=== PATIENT | female | born 1990 | race African-American/Black ===

== ENCOUNTER 2020-01-21 03:24 | Emergency (ER) | payer BC, MEDICAID, SELFPAY ==
--- NOTE | ~2020-01-21 | XR_ITS ---
XR foot LT min 3V DATE: 01/21/2020 04:07 INDICATION: Twisted ankle. Dorsal and lateral ankle and foot pain TECHNIQUE: 4 views COMPARISON: None FINDINGS: There is mild plantar and posterior calcaneal enthesopathy. No fracture or dislocation, periosteal reaction or bone destruction. IMPRESSION: Calcaneal enthesopathy No fracture or dislocation Reviewed, dictated and finalized at location A.
--- NOTE | ~2020-01-21 | XR_ITS ---
XR ankle LT min 3V DATE: 01/21/2020 04:07 INDICATION: Twisted ankle. Pain of left ankle and left foot laterally and dorsally. TECHNIQUE: 4 views COMPARISON: None FINDINGS: Mild plantar and posterior calcaneal enthesopathy. No fracture or dislocation of the ankle or disruption of the ankle mortise is detected. IMPRESSION: No fracture or dislocation of the ankle Reviewed, dictated and finalized at location A.
[2020-01-21 03:33] VITALS: BP 124/75; PULSE 107; RESP 15; TEMP 36.6; O2SAT 97
--- NOTE | 2020-01-21 04:05 | ED.LOWEXIN ---
HPI - Extremity Injury (Lower) General Chief Complaint: Extremity Injury, Lower Stated Complaint: left foot pain Time Seen by Provider: 01/21/20 03:45 Source: patient Mode of arrival: ambulatory Limitations: no limitations History of Present Illness HPI Narrative: Patient is a 29-year-old female who presents to the emergency department with complaint of left ankle/foot pain after sustaining a twisting injury when she missed a step. Patient locates the pain across the dorsal aspect of the proximal foot/lower ankle. She denies any other injuries or complaints. MD complaint: ankle injury and foot injury Onset (ago): hour(s) Injury: Left: ankle and foot Type of Injury: other (Twisted) Place: home Context: other (Missed a step) Treatments prior to arrival: cold therapy and other (Tramadol) Related Data Home Medications Medication Instructions Recorded Confirmed No Home Medications 01/21/20 01/21/20 Allergies Allergy/AdvReac Type Severity Reaction Status Date / Time No Known Allergies Allergy Unverified 01/21/20 03:37 Review of Systems Review of Systems: All systems reviewed & are unremarkable except as noted in HPI and below PMFSH Past Medical History Medical History (Updated 01/21/20 @ 04:58 by Yadira Jean Baptiste MD) No significant past medical history Surgical History Surgical History (Updated 01/21/20 @ 04:52 by Yadira Jean Baptiste MD) No history of previous surgery Family History Family History (Updated 05/11/17 @ 10:40 by DOCTOR UNKNOWN) Grandparent Family history of malignant neoplasm of breast Social History Social History Smoking status: Former smoker Smoking end date: 11/07/16 Alcohol intake: never Exam Const: General: cooperative, no acute distress and alert Nutritional Appearance: well nourished Orientation/consciousness: patient oriented x3 Limitations: no limitations Resp: Effort & Inspection: normal respiratory effort Auscultation: clear to auscultation bilaterally Cardio: Rate: regular rate Rhythm: regular rhythm Skin: General skin exam: normal color Neuro: General: patient oriented x3 Cognition (Neuro): normal cognition Speech: normal speech Extrem: General: full ROM and no clubbing, cyanosis or edema Left lower extremity: ankle Details: tenderness (Distal ankle); no swelling and no ecchymosis and foot Details: toes with normal ROM, no edema, vascular exam Details: dorsalis pedis pulse present, posterior tibial pulse present and normal capillary refill and motor-sensory exam light-touch normal; no tenderness and no ecchymosis Psych: Mental Status: mental status grossly normal Affect: normal affect Attitude: cooperative Course Course Emergency Course: No acute abnormalities noted on imaging. Discussed use of anti-inflammatories and acetaminophen for symptom management continue ice and elevation. Vital Signs Vital signs: Vital Signs Temperature 97.9 F 01/21/20 03:33 Pulse Rate 107 H 01/21/20 03:33 Respiratory Rate 15 01/21/20 03:33 Blood Pressure 124/75 01/21/20 03:33 Pulse Oximetry 97 01/21/20 03:33 Temperature 97.9 F 01/21/20 03:33 Pulse Rate 107 H 01/21/20 03:33 Respiratory Rate 15 01/21/20 03:33 Blood Pressure 124/75 01/21/20 03:33 Pulse Oximetry 97 01/21/20 03:33 MDM - Extremity Injury (Lower) Imaging Data Attestation: I personally reviewed and interpreted this imaging study as follows: My impression: X-ray left foot/left ankle: No acute abnormality Critical Care Time Critical Care Time Critical Care Time: No Discharge Plan Discharge Clinical Impression: Left ankle sprain Qualifiers: Encounter type: initial encounter Involved ligament of ankle: unspecified ligament Qualified Code(s): S93.402A - Sprain of unspecified ligament of left ankle, initial encounter Patient Disposition: Home, Self-Care Condition: Stable Instructions: Ankle Sprain (ED) Additional Instructions: Wear Sheldon wrap a
[2020-01-21] MEDS: IBUPROFEN 600 MG TABLET PO (04:22)
[2020-01-21 05:00] VITALS: BP 122/78; PULSE 98; RESP 12; O2SAT 98
== END 2020-01-21 05:00 | disposition home or self-care (01) ==
PROVIDERS: Emergency Provider Emergency Medicine
DX: S93.402A Sprain of unspecified ligament of left ankle, initial encounter (principal); Z87.891 Personal history of nicotine dependence; X50.9XXA Other and unspecified overexertion or strenuous movements or postures, initial encounter
CPT/HCPCS: 73610; 73630; 99283; A9270

== ENCOUNTER 2020-04-14 22:35 | Emergency (ER) | payer BC, MEDICAID, SELFPAY ==
--- NOTE | ~2020-04-14 | XR_ITS ---
EXAMINATION: XR elbow LT min 3V EXAM DATE: 04/14/2020 23:07 INDICATION: Initial encounter following injury, with pain of the left elbow, posteriorly. TECHNIQUE: Left elbow frontal, lateral with flexion, and oblique projections obtained and reviewed. There is no prior study for comparison. FINDINGS: Left elbow anterior humeral line intact. There is acute closed posttraumatic fracture of the left radial head with about 2 mm of impaction. This finding has been indicated, marked on the ex amination for review, clinical correlation. There is an elbow joint hemarthrosis. No other acute find ings. IMPRESSION: Acute left radial head fracture with a few millimeters impaction. Reviewed, dictated and finalized at location G.
[2020-04-14 22:42] VITALS: BP 130/75; PULSE 93; RESP 16; TEMP 37; O2SAT 98
--- NOTE | 2020-04-14 22:51 | ED.UPPEXIN ---
HPI - Extremity Injury (Upper) General Chief Complaint: Extremity Injury, Upper Stated Complaint: fell; arm injury Time Seen by Provider: 04/14/20 22:38 History of Present Illness HPI narrative: Patient is a 30-year-old female who presents ER with left elbow pain. She is sitting on the porch when she fell backwards and struck her left elbow. Has pain with extension. No numbness or tingling. No deformity. Has not tried any pain medication. Did not strike her head or lose consciousness. Related Data Allergies Allergy/AdvReac Type Severity Reaction Status Date / Time No Known Allergies Allergy Unverified 01/21/20 03:37 Review of Systems Gastrointestinal: Gastrointestinal: Denies nausea and Denies vomiting Musculoskeletal: Musculoskeletal: Reports arthralgias and Denies joint swelling Neurologic: Denies syncope, Denies focal weakness, Denies numbness and Denies weakness PMFSH Past Medical History Medical History (Updated 04/14/20 @ 23:59 by Jeffrey Haley MD) No significant past medical history Surgical History Surgical History (Updated 01/21/20 @ 04:52 by Yadira Jean Baptiste MD) No history of previous surgery Family History Family History (Updated 05/11/17 @ 10:40 by DOCTOR UNKNOWN) Grandparent Family history of malignant neoplasm of breast Social History Social History Smoking status: Former smoker Smoking end date: 11/07/16 Alcohol intake: never Gender identity (if verbalized by the patient): Female Exam Narrative: Exam Narrative: GENERAL: Well-appearing, well-nourished, and in no acute distress. HEAD: Normocephalic, atraumatic. HEART: Regular rate and rhythm. Normal peripheral pulses. EXTREMITIES: TTP posterior left elbow and radial head, normal sensation/pulses. Increased pain with extension/pronation/supinantion. SKIN: Warm, dry, no rash. NEURO: No focal deficits. Alert and oriented x3. PSYCH: Normal mood and affect. Course Course Emergency Course: Informed of results. Nurses placed sign. Refer to Orth. Vital Signs Vital signs: Vital Signs Temperature 98.6 F 04/14/20 22:42 Pulse Rate 93 04/14/20 22:42 Respiratory Rate 16 04/14/20 22:42 Blood Pressure 130/75 04/14/20 22:42 Pulse Oximetry 98 06/08/20 22:42 Temperature 98.6 F 04/14/20 22:42 Pulse Rate 93 04/14/20 22:42 Respiratory Rate 16 04/14/20 22:42 Blood Pressure 130/75 04/14/20 22:42 Pulse Oximetry 98 04/14/20 22:42 Discharge Plan Discharge Clinical Impression: Fracture of radial head, left, closed Patient Disposition: Home, Self-Care Condition: Stable Instructions: Arm Fracture in Adults (ED), How to Use a Sling (ED) Additional Instructions: Follow-up with orthopedic surgery for further evaluation and treatment. Return the ER if you suffer new injury, you have chest pain or shortness of breath, you have additional concerns. Prescriptions: New hydrocodone-acetaminophen 5-325 mg tablet 1 tablet PO Q6H PRN (Reason: pain) Qty: 20 RF: 0 Follow-up/Referrals: PHYSICIAN NOT ON STAFF,NONSTAFF [Primary Care Provider] - None Jp Heath MD [Physician] - 1 Week Stand Alone Forms: Work/School Release IP
[2020-04-15 00:13] VITALS: BP 128/74; PULSE 91; RESP 16; O2SAT 100
== END 2020-04-15 00:14 | disposition home or self-care (01) ==
PROVIDERS: Emergency Provider Emergency Medicine; PCP Nurse Practitioner Family
DX: S52.122A Displaced fracture of head of left radius, initial encounter for closed fracture (principal); Z87.891 Personal history of nicotine dependence; W17.89XA Other fall from one level to another, initial encounter
CPT/HCPCS: 73080; 99284; A4565; A9270

== ENCOUNTER 2020-11-20 14:42 | Outpatient (CLI) | payer BC, SELFPAY ==
[2020-11-20 15:29] LABS: Beta HCG Quantitative < 2.39 mIU/ML
== END 2020-11-20 14:43 | disposition home or self-care (01) ==
PROVIDERS: Visit Provider Student in an Organized Health Care Education/Training Program
DX: N64.52 Nipple discharge (principal)
CPT/HCPCS: 36415; 84146; 84443; 84702

== ENCOUNTER 2020-12-03 10:58 | Outpatient (CLI) | payer BC, SELFPAY ==
--- NOTE | ~2020-12-03 | US_ITS ---
US breast RT complete INDICATION: Milky nipple discharge TECHNIQUE: Dedicated right breast ultrasound COMPARISON: No prior studies for comparison. FINDINGS: The right breast is composed of normal heterogeneous echotexture without focal solid or cys tic mass. IMPRESSION: 1: Normal right breast ultrasound. BI-RADS CATEGORY 1 - NEGATIVE Reviewed, dictated and finalized at location A. 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
== END 2020-12-03 10:59 | disposition home or self-care (01) ==
PROVIDERS: Visit Provider Student in an Organized Health Care Education/Training Program
DX: N64.52 Nipple discharge (principal)
CPT/HCPCS: 76641

== ENCOUNTER 2021-03-23 03:47 | Emergency (ER) | payer BC, MEDICAID, SELFPAY ==
[2021-03-23] VITALS (35 sets, daily range): BP systolic 94–133; BP diastolic 62–107; PULSE 60–97; RESP 12–20; TEMP 36.9; O2SAT 96–100
--- NOTE | ~2021-03-23 | US_ITS ---
EXAMINATION: US OB <=14 wk fetus w TV DATE: 03/23/2021 06:56 INDICATION: Pelvic pain. TECHNIQUE: Real-time transabdominal and transvaginal pelvic ultrasound was performed. COMPARISON: None. FINDINGS: TRANSABDOMINAL ULTRASOUND: The uterus measures 10.2 x 5.5 x 4.4 cm. TRANSVAGINAL ULTRASOUND: There is no visible intrauterine gestational sac. The endometrial complex me asures 14 mm in thickness. The right ovary measures 3.6 x 1.9 x 1.8 cm. The left ovary measures 2.9 x 2.1 x 2.0 cm. There is normal vascular flow in the ovaries. There is trace free fluid in the pelvis. IMPRESSION: 1. No visible intrauterine gestational sac, which may be normal in early . Spontaneous abor tion and ectopic are not excluded. Serial beta-hCGs are recommended. Reviewed, dictated and finalized at location A. IMPRESSION: 1. No visible intrauterine gestational sac, which may be normal in early pregn kelby. Spontaneous and ectopic are not excluded. Serial beta- hCGs are recommended.
--- NOTE | ~2021-03-23 | CT_ITS ---
EXAMINATION: CT abdomen pelvis w con DATE: 03/23/2021 10:13 INDICATION: Lower abdominal pain. Nausea, vomiting. Miscarriage 3 weeks ago. TECHNIQUE: Computed tomography (CT) of the abdomen and pelvis was performed with 100 cc Omnipaque 350 intravenous contrast. Automated exposure control and iterative reconstruction technique were employe d. Exam dose: 810.55 mGy-cm total exam DLP. COMPARISON: None. FINDINGS: The lung bases are clear. Normal heart size. No pericardial or pleural effusion. The liver, gallbladder, bile ducts, spleen, pancreas, pancreatic duct, and adrenal glands and kidneys are unremarkable. No urinary tract calculus or hydroureteronephrosis. Normal caliber of the abdominal aorta. No intraperitoneal or retroperitoneal or pelvic mass lesion or adenopathy or ascites. Normal caliber of the appendix. No bowel obstruction, bowel wall thickening, pneumatosis or intraperi toneal free air. Uterus measures approximately 11 cm height, uterine fundus up to 5 cm AP dimension. Endometrial cavit y at the uterine fundus measures up to 13 mm AP dimension, which may represent blood within the endom etrial cavity or retained products of conception given history of miscarriage 3 weeks ago. Small amount of free fluid in the cul-de-sac, which may be physiologic. Adnexa and urinary bladder ar e unremarkable. Small fat-containing umbilical hernia. No suspicious osteolytic or osteoblastic lesions.. IMPRESSION: Enlarged uterus with prominent endometrial content 3 weeks post reported miscarriage; th e prominent endometrial content may be due to blood or retained products of conception. Consider pelv ic ultrasound correlation. Reviewed, dictated and finalized at Location A. Reviewed, dictated and finalized at location B. IMPRESSION: Enlarged uterus with prominent endometrial content 3 weeks post re ported miscarriage; the prominent endometrial content may be due to blood or re tained products of conception. Consider pelvic ultrasound correlation.
--- NOTE | 2021-03-23 03:55 | PC.NURSE ---
Pt presents to ED with complaints of abdominal pain and gluteus pain that was sudden onset while at work. Pt denies nausea and emesis. Denies factors that increase or improve pain. Pt states she had miscarriage approx 3 weeks denies need for d&c and any other medical hx. Pt noted to be alert and oriented x4. Breathing noted to be even and unlabored. Vitals are stable. Pt states the worst pain in her butt crack . 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 Denies urinary symptoms at this time and states pain initially onset after a bowel movement. O2 saturation is 99% on room air. Call button and personal items within reach; advised to press call button for assistance.
--- NOTE | 2021-03-23 03:59 | PC.NURSE ---
Pt denies urge to urinate at this time and is aware of the need for urine specimen. Specimen cup provided.
--- NOTE | 2021-03-23 04:15 | PC.NURSE ---
EDMD present at bedside.
--- NOTE | 2021-03-23 04:35 | PC.NURSE ---
Pt ambulated in carbone to restroom to provide urine specimen. Specimen collected and sent to lab.
[2021-03-23] MEDS: SODIUM CHLORIDE 0.9% IV 1,000 ML 999 ML IV CONT (04:36)
[2021-03-23] MEDS: MORPHINE SULFATE (*CRX) 4 MG/ML INJ IV PUSH ×3 (04:36→09:20)
[2021-03-23] MEDS: ONDANSETRON INJ 4 MG/2 ML VIAL IV PUSH (04:37)
[2021-03-23 05:23] LABS: Basophils Percent Auto 0.5 % (0.2-1.2); Eosinophils Absolute Auto 0.1 K/mm3 (0-0.3); Eosinophils Percent Auto 0.7 % (0-4.4); Hematocrit 37.4 % (37.0-47.0); Hemoglobin 12.2 g/dL (12.0-15.0); Immature Granulocyte Absolute 0.03 K/mm3 (0.00-0.031); Immature Granulocyte Percent A 0.3 % (0-0.5); Lymphocytes Absolute Auto 2.47 K/mm3 (0.9-3.2); Lymphocytes Percent Auto 28.1 % (18.3-44.2); Mean Corpuscular HGB Conc 32.6 g/dl (32-36); Mean Corpuscular Hemoglobin 30.3 pg (26-34); Mean Platelet Volume 10.8 fl (7.4-10.4); Monocytes Absolute Auto 0.5 K/mm3 (0.1-0.6); Monocytes Percent Auto 5.1 % (2.6-8.5); Neutrophils Absolute Auto 5.7 K/mm3 (1.3-6.7); Neutrophils Percent Auto 65.3 % (45.5-73.1); Platelet Count Result 205 k/mm3 (150-375); Red Blood Count 4.02 M/mm3 (4.2-5.4); Red Cell Distribution Width 12.5 % (11.5-14.5); White Blood Count 8.8 K/mm3 (4.5-10.0)
[2021-03-23 05:27] LABS: Add Urine Microscopic? YES; Appearance Urine Cloudy (Clear); Bacteria Urine Trace /hpf; Bilirubin Urine Negative (Negative); Blood Urine 1+ (Negative); Calcium Oxalate Crystals Urine Present /hpf; Color Urine Yellow (Yellow); Glucose Urine UA Negative (Negative); Ketones Urine Negative (Negative); Leukocyte Esterase Ur 2+ LEU/UL (Negative); Mucus Urine Few /lpf; Nitrate Urine Negative (Negative); Protein Urine 1+ mg/dL (Negative); Specific Grav Ur 1.024 (1.001-1.035); Squamous Epithelial Cell Urine Few /hpf (Few); Urobilinogen Urine Negative mg/dL (<2.0); WBC Urine 21-30 /hpf
--- NOTE | 2021-03-23 05:29 | PC.NURSE ---
Pt states pain is persistent and remains 06/16. EDMD notified and states he will place orders.
[2021-03-23 05:36] LABS: Alanine Aminotransferase 9 U/L (4-35); Albumin Level 4.2 g/dL (3.5-5.1); Alkaline Phosphatase 50 U/L (38-126); Anion Gap 5 mmol/L (8-16); Aspartate Amino Transferase 22 U/L (14-36); Bilirubin,Total 0.4 mg/dL (0.2-1.3); Blood Urea Nitrogen 8 mg/dL (7-17); Calcium 9.2 mg/dL (8.4-10.2); Carbon Dioxide 27 mmol/L (22-30); Chloride 105 mmol/L (98-107); Estimated CRCL calculation 109 ml/min; Estimated Glomerular Filt Rate > 60; Glucose 91 mg/dL (65-105); Lipase 76 U/L (23-300); Potassium 3.7 mmol/L (3.4-5.0); Sodium 137 mmol/L (137-145)
--- NOTE | 2021-03-23 05:44 | ED.ABDPAIN ---
HPI - Abdominal Pain General Chief Complaint: Abdominal Pain Stated Complaint: abd pain Time Seen by Provider: 03/23/21 04:10 History of Present Illness HPI narrative: Patient is a 31-year-old female who presents the emergency department with chief complaint of abdominal pain and flank pain. Patient reports she is recently had a miscarriage that was not verified on ultrasound. Patient states that she went to work tonight at [employer] and had sudden onset of severe abdominal pain that radiated to her rectum. The patient states that very uncomfortable reports that is not improved by anything. The patient states pain is worsened with movement. Patient denies fever or chills. Related Data Home Medications Medication Instructions Recorded Confirmed prenat.vits,pattie,[id number]-tqdhr 1 tablet PO DAILY 02/26/21 Allergies Allergy/AdvReac Type Severity Reaction Status Date / Time No Known Allergies Allergy Verified 02/26/21 09:27 Review of Systems Review of Systems: Narrative: A 10 system review of systems was completed on the patient and is negative except for what is stated in the HPI. Nursing and ancillary documentation was reviewed. [facility] Past Medical History Medical History History of vaginal delivery Left radial head fracture (~04/14/20) Surgical History Surgical History No history of previous surgery Family History Family History Grandparent Family history of malignant neoplasm of breast Social History Social History Smoking status: Former smoker Smoking end date: 11/07/16 Alcohol intake: never Gender identity (if verbalized by the patient): Female Exam Narrative: Exam Narrative: GENERAL: Well-appearing, well-nourished, and in no acute distress. HEAD: Normocephalic, atraumatic. EYES: PERRLA and EOMI. ENT: Nares clear, no rhinorrhea or epistaxis. Mucous membranes moist. NECK: Supple. CHEST: Clear to auscultation. No respiratory distress. HEART: Regular rate and rhythm. No murmur heard. Normal peripheral pulses. ABDOMEN: Soft, diffuse tenderness to palpation, nondistended, normal active bowel sounds. EXTREMITIES: Normal range of motion. No edema. SKIN: Warm, dry, no rash. NEURO: No focal deficits. Alert and oriented x3. PSYCH: Normal mood and affect. Course Vital Signs Vital signs: Vital Signs Temperature 36.9 C 03/23/21 03:44 Pulse Rate 81 03/23/21 03:44 Respiratory Rate 12 03/23/21 03:44 Blood Pressure 103/69 03/23/21 03:44 Pulse Oximetry 99 03/23/21 03:44 Temperature 36.9 C 03/23/21 03:53 Pulse Rate 76 03/23/21 03:53 Respiratory Rate 13 03/23/21 03:53 Blood Pressure 103/69 03/23/21 03:53 Pulse Oximetry 100 03/23/21 03:53 MDM - Abdominal Pain Lab Data Result diagrams: 03/23/21 04:45 03/23/21 04:46 Labs: Lab Results 03/23/21 03/23/21 03/23/21 Range/Units 04:45 04:45 04:46 WBC 8.8 (4.5-10.0) K/mm3 RBC 4.02 L (4.2-5.4) M/mm3 Hgb 12.2 (12.0-15.0) g/dL Hct 37.4 (37.0-47.0) % MCV 93.0 (80-100) fl MCH 30.3 (26-34) pg MCHC 32.6 (32-36) g/dl RDW 12.5 (11.5-14.5) % Plt Count 205 (150-375) k/mm3 MPV 10.8 H (7.4-10.4) fl Immature Gran % (Auto) 0.3 (0-0.5) % Neut % (Auto) 65.3 (45.5-73.1) % Lymph % (Auto) 28.1 (18.3-44.2) % [place] % (Auto) 5.1 (2.6-8.5) % Eos % (Auto) 0.7 (0-4.4) % Baso % (Auto) 0.5 (0.2-1.2) % Lymph # (Auto) 2.47 (0.9-3.2) K/mm3 [place] # (Auto) 0.5 (0.1-0.6) K/mm3 Eos # (Auto) 0.1 (0-0.3) K/mm3 Baso # (Auto) 0.0 (0.0-0.1) K/mm3 Abs Immat Gran (auto) 0.03 (0.00-0.031) K/mm3 Absolute Neuts (auto) 5.7 (1.3-6.7) K/mm3 Absolute Nucleated RBC 0.0 (0
--- NOTE | 2021-03-23 05:48 | PC.NURSE ---
Pharmacy called and advised that morphine is out in pyxis and has presented to ED to refill.
--- NOTE | 2021-03-23 06:23 | PC.NURSE ---
Pt to radiology via cart.
--- NOTE | 2021-03-23 06:34 | PC.NURSE ---
Pt remains in radiology.
--- NOTE | 2021-03-23 07:09 | PC.NURSE ---
Pt returned from radiology and is resting on cart in its lowest position with call button and personal items within reach. Pain improved and is now rated 5/10. Advised to press call button for assistance.
[2021-03-23 08:49] LABS: Beta HCG Quantitative 19.69 mIU/ML
== END 2021-03-23 12:07 | disposition home or self-care (01) ==
PROVIDERS: Emergency Medicine; Emergency Provider Emergency Medicine
DX: N39.0 Urinary tract infection, site not specified (principal); Z87.891 Personal history of nicotine dependence
CPT/HCPCS: 36415; 74177; 76801; 76817; 80053; 81001; 81025; 83690; 84702; 85025; 85461; 87086; 87088; 96361; 96365; 96375; 96376; 99284; J0696; J2270; J2405; J7030; Q9967